=== PATIENT | female | born 1965 | race Caucasian/White ===

== ENCOUNTER 2017-05-25 12:18 | Emergency (ER) | payer MEDICAID ==
[~2017-05-25] VITALS: Ht 160 cm; Wt 125.0 kg
[~2017-05-25 12:18] MED LIST: BUSP10TA11 PO; DET2LAC PO; DOCU-28 PO; EFF37.5XRC PO; FEXO-124 PO; GABA-530 PO; HYDR-3965 PO; IBUP-1986 PO; LISI-222 PO; NAPR-56 PO
[2017-05-25 12:37] VITALS: BP 106/86
[2017-05-25] MEDS ORDERED: IBUP-1984 PO (14:09)
== END 2017-05-25 14:16 | disposition home or self-care (01) ==
LOC: ER 12:18
DX: M77.12 Lateral epicondylitis, left elbow (principal); I10 Essential (primary) hypertension; G89.29 Other chronic pain; Z90.89 Acquired absence of other organs; Z90.49 Acquired absence of other specified parts of digestive tract; Z90.710 Acquired absence of both cervix and uterus; Z88.6 Allergy status to analgesic agent; Z88.5 Allergy status to narcotic agent; Z88.8 Allergy status to other drugs, medicaments and biological substances; Z79.899 Other long term (current) drug therapy; Z60.2 Problems related to living alone
CPT/HCPCS: 73060; 73080; 99284

== ENCOUNTER 2017-09-15 13:05 | Emergency (ER) | payer MEDICAID ==
[~2017-09-15] VITALS: Ht 160 cm; Wt 134.3 kg
[2017-09-15 13:52] LABS: BASOPHILS # (AUTO) 0.1 X10'3 (0-0.2); BASOPHILS % (AUTO) 0.7 % (0-1); EOSINOPHILS # (AUTO) 0.1 X10'3 (0-0.9); EOSINOPHILS % (AUTO) 0.8 % (0-6); HEMATOCRIT 38.4 % (35.0-45.0); HEMOGLOBIN 13.1 g/dl (12.0-16.0); LYMPHOCYTES # (AUTO) 2.4 X10'3 (1.1-4.8); LYMPHOCYTES % (AUTO) 21.4 % (21-51); MEAN CORPUSCULAR HEMOGLOBIN 27.6 PG (27.0-31.0); MEAN CORPUSCULAR VOLUME 81.1 FL (78-98); MEAN PLATELET VOLUME 8.3 FL (7.4-10.4); MONOCYTES # (AUTO) 0.6 X10'3 (0-0.9); MONOCYTES % (AUTO) 5.5 % (2-12); NEUTROPHILS # (AUTO) 8.2 X10'3 (1.8-7.7); NEUTROPHILS % (AUTO) 71.6 % (42-75); PLATELET COUNT 267 X10'3 (140-440); RED BLOOD COUNT 4.74 X10'6 (4.20-5.60); RED CELL DISTRIBUTION WIDTH 14.4 % (11.5-14.5); WHITE BLOOD COUNT 11.4 X10'3 (4.5-11.0)
[2017-09-15 14:00] LABS: INR 0.9 INR; PROTHROMBIN TIME 9.7 SECONDS (9.0-12.0)
[2017-09-15 14:05] LABS: ALANINE AMINOTRANSFERASE 20 U/L (12-78); ALBUMIN 3.2 G/DL (3.4-5.0); ALBUMIN/GLOBULIN RATIO 0.8 (1.1-1.5); ALKALINE PHOSPHATASE 93 IU/L (46-116); ANION GAP 8 (8-16); ASPARTATE AMINO TRANSFERASE 22 U/L (10-37); BILIRUBIN,TOTAL 0.2 MG/DL (0.1-1.0); BLOOD UREA NITROGEN 10 MG/DL (7-18); BUN/CREATININE RATIO 11.6 (6.6-38.0); CALCIUM 8.9 MG/DL (8.5-10.1); CHLORIDE 104 MMOL/L (99-107); CREATININE 0.86 MG/DL (0.40-0.90); GLUCOSE 115 MG/DL (70-104); LIPASE 89 U/L (73-393); POTASSIUM 3.6 MMOL/L (3.5-5.1); SODIUM 141 MMOL/L (135-145); TOTAL PROTEIN 7.1 G/DL (6.4-8.2); eGFR 69 ML/MIN
[2017-09-15 14:44] LABS: CLARITY,URINE CLEAR (Clear); COLOR,URINE YELLOW (Yellow); GLUCOSE, URINE NEGATIVE (Neg); KETONES,URINE NEGATIVE (Neg); LEUKOCYTE ESTERASE ,URINE NEGATIVE (Neg); NITRITES, URINE NEGATIVE (Neg); OCCULT BLOOD,URINE SMALL (Neg); PH,URINE 7.5 (4.8-8.0); PROTEIN,URINE NEGATIVE (Neg); UROBILINOGEN,URINE 0.2 E.U/dL (0.2-1.0)
[2017-09-15 14:45] VITALS: BP 140/92
[2017-09-15 14:45] LABS: UA COLLECTION TYPE OTHER
[2017-09-15 14:54] LABS: WBC,URINE 0-4 /HPF (0-4)
[2017-09-15 14:55] LABS: BACTERIA,URINE NONE SEEN /HPF (Neg); SQUAMOUS EPITHELIAL CELL,UR FEW /LPF (FEW)
== END 2017-09-15 14:46 | disposition home or self-care (01) ==
LOC: ER 13:05
DX: R10.9 Unspecified abdominal pain (principal); I10 Essential (primary) hypertension; G89.29 Other chronic pain; M79.7 Fibromyalgia; Z90.49 Acquired absence of other specified parts of digestive tract; Z90.710 Acquired absence of both cervix and uterus; Z98.890 Other specified postprocedural states; Z88.5 Allergy status to narcotic agent; Z88.6 Allergy status to analgesic agent; Z88.8 Allergy status to other drugs, medicaments and biological substances; Z79.899 Other long term (current) drug therapy; Z60.2 Problems related to living alone
CPT/HCPCS: 36415; 80053; 81001; 83690; 85025; 85610; 99284

== ENCOUNTER 2017-11-21 20:38 | Emergency (ER) | payer MEDICAID ==
[~2017-11-21] VITALS: Ht 160 cm; Wt 130.9 kg
[2017-11-21 20:53] VITALS: BP 153/99
== END 2017-11-21 21:30 | disposition home or self-care (01) ==
LOC: ER 20:39
DX: J39.2 Other diseases of pharynx (principal); J02.9 Acute pharyngitis, unspecified; I10 Essential (primary) hypertension; G89.29 Other chronic pain; M79.7 Fibromyalgia; Z90.49 Acquired absence of other specified parts of digestive tract; Z90.710 Acquired absence of both cervix and uterus; Z98.890 Other specified postprocedural states; Z79.899 Other long term (current) drug therapy; Z88.6 Allergy status to analgesic agent; Z88.5 Allergy status to narcotic agent; Z88.8 Allergy status to other drugs, medicaments and biological substances
CPT/HCPCS: 99284

== ENCOUNTER 2018-04-20 20:09 | Emergency (ER) | payer MEDICAID ==
[~2018-04-20] VITALS: Ht 160 cm; Wt 131.8 kg
--- NOTE | 2018-04-20 21:07 | NUR ---
patient here for low back pain for two and a half weeks, patient was cleaning her house when it started, stabbing pain intermittent across hips, "if slunch down" it hurts deep breath makes it worse no otc medication taken, using heating pad at night patient would like x ray of back
--- NOTE | 2018-04-20 21:10 | NUR ---
jazmin seen at [facility] two days ago and "they didnt do nothing"
[2018-04-20] MEDS ORDERED: ibuprofen tablet 400 MG TABLET PO ONE (21:30)
[2018-04-20] MEDS ORDERED: IBUP-1984 PO (21:32)
[2018-04-20 21:40] VITALS: BP 133/68
== END 2018-04-20 21:43 | disposition home or self-care (01) ==
LOC: ER 20:10
DX: M54.5 Low back pain (principal); I10 Essential (primary) hypertension; G89.29 Other chronic pain; M79.7 Fibromyalgia; Z90.49 Acquired absence of other specified parts of digestive tract; Z90.710 Acquired absence of both cervix and uterus; Z88.5 Allergy status to narcotic agent; Z88.6 Allergy status to analgesic agent; Z79.899 Other long term (current) drug therapy; X50.1XXA Overexertion from prolonged static or awkward postures, initial encounter; Y93.89 Activity, other specified; Y92.89 Other specified places as the place of occurrence of the external cause; Y99.9 Unspecified external cause status
CPT/HCPCS: 99284

== ENCOUNTER 2018-05-01 15:27 | Emergency (ER) | payer MEDICAID ==
[~2018-05-01] VITALS: Ht 160 cm; Wt 131.0 kg
[~2018-05-01 15:27] MED LIST changes: +IBUP-1984 PO
[2018-05-01 15:36] VITALS: BP 161/101
== END 2018-05-01 19:15 | disposition left against medical advice (07) ==
LOC: ER 15:28
DX: R10.9 Unspecified abdominal pain (principal); Z53.21 Procedure and treatment not carried out due to patient leaving prior to being seen by health care provider

== ENCOUNTER 2018-07-18 17:33 | Emergency (ER) | payer MEDICAID ==
[~2018-07-18] VITALS: Ht 160 cm; Wt 130.5 kg
[~2018-07-18 17:33] MED LIST changes: -IBUP-1984 PO
[2018-07-18 17:41] VITALS: BP 130/76
[2018-07-18] MEDS ORDERED: FEXO1TAB8 PO (19:05)
== END 2018-07-18 19:21 | disposition home or self-care (01) ==
LOC: ER 17:34
DX: J30.2 Other seasonal allergic rhinitis (principal); R51 Headache; R05 Cough; H92.02 Otalgia, left ear; I10 Essential (primary) hypertension; G89.29 Other chronic pain; Z86.69 Personal history of other diseases of the nervous system and sense organs; Z90.49 Acquired absence of other specified parts of digestive tract; Z90.710 Acquired absence of both cervix and uterus; Z98.890 Other specified postprocedural states; Z60.2 Problems related to living alone; Z88.5 Allergy status to narcotic agent; Z88.8 Allergy status to other drugs, medicaments and biological substances; Z91.041 Radiographic dye allergy status; Z79.899 Other long term (current) drug therapy
CPT/HCPCS: 99282

== ENCOUNTER 2019-01-24 14:51 | Emergency (ER) | payer MEDICAID ==
[~2019-01-24] VITALS: Ht 160 cm; Wt 133.0 kg
[~2019-01-24 14:51] MED LIST changes: +ALBU18HF2 INH; +CEPH500C5 PO; +FEXO1TAB8 PO
[2019-01-24 14:58] VITALS: BP 143/110
== END 2019-01-24 16:30 | disposition home or self-care (01) ==
LOC: ER 14:51
DX: M25.461 Effusion, right knee (principal); E66.01 Morbid (severe) obesity due to excess calories; I10 Essential (primary) hypertension; G89.29 Other chronic pain; M79.7 Fibromyalgia; Z90.49 Acquired absence of other specified parts of digestive tract; Z90.710 Acquired absence of both cervix and uterus; Z98.890 Other specified postprocedural states; Z88.5 Allergy status to narcotic agent; Z88.6 Allergy status to analgesic agent; Z79.899 Other long term (current) drug therapy
CPT/HCPCS: 73564; 99283

== ENCOUNTER 2019-05-14 16:35 | Emergency (ER) | payer MEDICAID ==
[~2019-05-14] VITALS: Ht 160 cm; Wt 136.0 kg
[2019-05-14 16:38] VITALS: BP 160/88
[2019-05-14] MEDS ORDERED: OFLO5DRO5 RIGHT EAR (17:22)
== END 2019-05-14 17:33 | disposition home or self-care (01) ==
LOC: ER 16:37
DX: H93.8X1 Other specified disorders of right ear (principal); L29.9 Pruritus, unspecified; I10 Essential (primary) hypertension; G89.29 Other chronic pain; M79.7 Fibromyalgia; Z90.49 Acquired absence of other specified parts of digestive tract; Z90.710 Acquired absence of both cervix and uterus; Z98.890 Other specified postprocedural states; Z88.5 Allergy status to narcotic agent; Z88.8 Allergy status to other drugs, medicaments and biological substances; Z88.6 Allergy status to analgesic agent; Z79.899 Other long term (current) drug therapy
CPT/HCPCS: 99283

== ENCOUNTER 2019-06-01 12:03 | Emergency (ER) | payer MEDICAID ==
[~2019-06-01] VITALS: Ht 172.7 cm; Wt 150.0 kg
[~2019-06-01 12:03] MED LIST changes: +OFLO5DRO5 RIGHT EAR
[2019-06-01 12:18] VITALS: BP 154/99
== END 2019-06-01 12:51 | disposition home or self-care (01) ==
LOC: ER 12:04
DX: K12.0 Recurrent oral aphthae (principal); I10 Essential (primary) hypertension; G89.29 Other chronic pain; F41.9 Anxiety disorder, unspecified; F32.9 Major depressive disorder, single episode, unspecified; M79.7 Fibromyalgia; E03.9 Hypothyroidism, unspecified; Z90.49 Acquired absence of other specified parts of digestive tract; Z90.710 Acquired absence of both cervix and uterus; Z88.5 Allergy status to narcotic agent; Z88.8 Allergy status to other drugs, medicaments and biological substances; Z79.2 Long term (current) use of antibiotics; Z79.899 Other long term (current) drug therapy
CPT/HCPCS: 99281

== ENCOUNTER 2019-11-21 14:53 | Emergency (ER) | payer MEDICAID ==
[~2019-11-21] VITALS: Ht 177.8 cm; Wt 135.0 kg
[~2019-11-21 14:53] MED LIST changes: -CEPH500C5 PO
[2019-11-21 17:22] VITALS: BP 165/99
== END 2019-11-21 17:25 | disposition home or self-care (01) ==
LOC: ER 14:53
DX: M25.561 Pain in right knee (principal); I10 Essential (primary) hypertension; G89.29 Other chronic pain; F41.9 Anxiety disorder, unspecified; F32.9 Major depressive disorder, single episode, unspecified; Z86.69 Personal history of other diseases of the nervous system and sense organs; Z90.49 Acquired absence of other specified parts of digestive tract; Z90.89 Acquired absence of other organs; Z72.89 Other problems related to lifestyle; Z88.5 Allergy status to narcotic agent; Z88.8 Allergy status to other drugs, medicaments and biological substances; Z79.899 Other long term (current) drug therapy
CPT/HCPCS: 73564; 99284

== ENCOUNTER 2020-03-13 13:29 | Emergency (ER) | payer MEDICAID ==
[~2020-03-13] VITALS: Ht 160 cm; Wt 13.1 kg
[2020-03-13 13:37] VITALS: BP 142/99
== END 2020-03-13 14:57 | disposition home or self-care (01) ==
LOC: ER 13:30
DX: M54.16 Radiculopathy, lumbar region (principal); M79.605 Pain in left leg; M19.90 Unspecified osteoarthritis, unspecified site; I10 Essential (primary) hypertension; G89.29 Other chronic pain; M54.9 Dorsalgia, unspecified; F41.9 Anxiety disorder, unspecified; F32.9 Major depressive disorder, single episode, unspecified; Z90.49 Acquired absence of other specified parts of digestive tract; Z88.5 Allergy status to narcotic agent; Z88.8 Allergy status to other drugs, medicaments and biological substances
CPT/HCPCS: 73564; 99283

== ENCOUNTER 2020-04-03 22:02 | Emergency (ER) | payer MEDICAID ==
[~2020-04-03] VITALS: Ht 160 cm; Wt 136.4 kg
[2020-04-03] MEDS ORDERED: sulfamethoxazole/trimethoprim DS (800/160mg) tablet PO ONE (23:40)
[2020-04-03] MEDS ORDERED: SULF1TAB48 PO (23:45)
[2020-04-03 23:57] VITALS: BP 145/88
== END 2020-04-03 23:59 | disposition home or self-care (01) ==
LOC: ER 22:03
DX: L02.214 Cutaneous abscess of groin (principal); L03.314 Cellulitis of groin; I10 Essential (primary) hypertension; G89.29 Other chronic pain; M54.9 Dorsalgia, unspecified; F41.9 Anxiety disorder, unspecified; F32.9 Major depressive disorder, single episode, unspecified; M79.7 Fibromyalgia; Z90.49 Acquired absence of other specified parts of digestive tract; Z88.5 Allergy status to narcotic agent; Z88.8 Allergy status to other drugs, medicaments and biological substances; Z79.899 Other long term (current) drug therapy; Z90.710 Acquired absence of both cervix and uterus; Z60.2 Problems related to living alone; Z90.89 Acquired absence of other organs; Z72.89 Other problems related to lifestyle
CPT/HCPCS: 96365; 99283

== ENCOUNTER 2021-10-17 13:46 | Emergency (ER) | payer MEDICAID ==
[~2021-10-17] VITALS: Ht 160 cm; Wt 160.0 kg
[~2021-10-17 13:46] MED LIST changes: -FEXO-124 PO; +FEXO-271 PO
[2021-10-17 13:56] VITALS: BP 130/94
[2021-10-17] MEDS ORDERED: BEBTELOVIMAB 175 MG/2 ML VIAL IV ONE (16:20)
== END 2021-10-17 18:06 | disposition home or self-care (01) ==
LOC: ER 13:46
DX: U07.1 COVID-19 (principal); I10 Essential (primary) hypertension; G89.29 Other chronic pain; M54.50 Low back pain, unspecified; Z88.5 Allergy status to narcotic agent; Z91.041 Radiographic dye allergy status; Z88.8 Allergy status to other drugs, medicaments and biological substances; Z88.6 Allergy status to analgesic agent; Z90.49 Acquired absence of other specified parts of digestive tract; Z90.710 Acquired absence of both cervix and uterus; Z98.890 Other specified postprocedural states
CPT/HCPCS: 87502; 87503; 87635; 99283; C9803; M0222; Q0222

== ENCOUNTER 2023-07-12 19:01 | Emergency (ER) | payer MEDICAID ==
[~2023-07-12] VITALS: Ht 160 cm; Wt 117.9 kg
[~2023-07-12 19:01] MED LIST changes: -EFF37.5XRC PO; +VENL37.59 PO
[2023-07-12 20:54] VITALS: BP 176/115; PULSE 96; RESP 18; TEMP 97.9; O2SAT 96
== END 2023-07-12 20:55 | disposition home or self-care (01) ==
LOC: ER 19:01
DX: J06.9 Acute upper respiratory infection, unspecified (principal); I10 Essential (primary) hypertension; F41.9 Anxiety disorder, unspecified; F32.A Depression, unspecified; Z90.710 Acquired absence of both cervix and uterus; Z90.89 Acquired absence of other organs; Z88.8 Allergy status to other drugs, medicaments and biological substances; Z79.899 Other long term (current) drug therapy
CPT/HCPCS: 99282